=== PATIENT | male | born 1995 | race Hispanic/Latino ===

== ENCOUNTER 2022-05-25 20:36 | Emergency (ER) | payer SELFPAY ==
[2022-05-25] VITALS (8 sets, daily range): BP systolic 125–145; BP diastolic 84–99; PULSE 83–104; RESP 14–20; TEMP 37; O2SAT 97–100
--- NOTE | 2022-05-25 21:13 | ED.GENADULT ---
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 This is a 26-year-old male presents the ED for a med refill. He is out of his potassium supplements. States he has been out of this med for 2 weeks. He recently moved here and does not have a doctor yet. Patient states that he does have some muscle pains. Denies CP, SOB, palpitations. Patient is otherwise asymptomatic at this time. <JAMEL Shi Last Filed: 05/26/22 04:02> Related Data Allergies/adverse reactions: Allergies Allergy/AdvReac Type Severity Reaction Status Date / Time No Known Allergies Allergy Verified 05/25/22 20:51 <JAMEL Shi Last Filed: 05/26/22 04:02> Review of Systems Review of Systems: CONSTITUTIONAL: Denies fever, chills, or sweats. EYES: Denies visual changes, redness, or discharge. ENT: Denies rhinorrhea, congestion, sore throat, or otalgia. CARDIOVASCULAR: Denies chest pain, palpitations, or edema. RESPIRATORY: Denies cough or dyspnea. GASTROINTESTINAL: Denies abdominal pain, nausea, vomiting, or diarrhea. GENITOURINARY: Denies dysuria or hematuria. SKIN: Denies rash or itching. MUSCULOSKELETAL: Endorses myalgias. Denies back pain, joint pain, swelling. NEUROLOGIC: Denies headache, numbness, dizziness, or weakness. PSYCHIATRIC: Denies anxiety or depression. <Rene Infante PA-C - Last Filed: 05/26/22 04:02> Exam Narrative: GENERAL: Well-appearing, well-nourished, and in no acute distress. HEAD: Normocephalic, atraumatic. EYES: PERRLA and EOMI. ENT: Nares clear, no rhinorrhea or epistaxis. Mucous membranes moist. Oropharynx without tonsillar hypertrophy exudate or other lesions. NECK: Supple. No adenopathy or masses. CHEST: No respiratory distress. Clear to auscultation. No wheezes rales or rhonchi HEART: Regular rate and rhythm. No murmur heard. Normal peripheral pulses. ABDOMEN: Soft, nontender, nondistended, normal active bowel sounds. EXTREMITIES: Normal range of motion. No edema. SKIN: Warm, dry, no rash. NEURO: Alert and oriented x3. No focal deficits. PSYCH: Normal mood and affect. <Rene Infante PA-C - Last Filed: 05/26/22 04:02> Course Course Emergency Course: 0400: sleeping comfortably. still not having cp or palpitations <JAMEL Shi Last Filed: 05/26/22 04:02> Vital Signs Vital signs: Vital Signs Temperature 98.6 F 05/25/22 20:39 Pulse Rate 104 H 05/25/22 20:39 Respiratory Rate 16 05/25/22 20:39 Blood Pressure 145/84 H 05/25/22 20:39 Pulse Oximetry 97 05/25/22 20:39 Oxygen Delivery Room Air 05/25/22 20:39 Temperature 98.6 F 05/25/22 20:39 Pulse Rate 85 05/26/22 00:20 Respiratory Rate 17 05/26/22 00:20 Blood Pressure 126/91 H 05/25/22 23:46 Pulse Oximetry 99 05/26/22 00:20 Oxygen Delivery Room Air 05/25/22 20:39 <Rene Infante PA-C - Last Filed: 05/26/22 04:02> Vital Signs Temperature 98.6 F 05/25/22 20:39 Pulse Rate 104 H 05/25/22 20:39 Respiratory Rate 16 05/25/22 20:39 Blood Pressure 145/84 H 05/25/22 20:39 Pulse Oximetry 97 05/25/22 20:39 Oxygen Delivery Room Air 05/25/22 20:39 Temperature 98.6 F 05/25/22 20:39 Pulse Rate 85 05/26/22 00:20 Respiratory Rate 17 05/26/22 00:20 Blood Pressure 126/91 H 05/25/22 23:46 Pulse Oximetry 99 05/26/22 00:20 Oxygen Delivery Room
[2022-05-25 22:17] LABS: Basophils Absolute Auto 0.1 K/mm3 (0.0-0.1); Basophils Percent Auto 0.8 % (0.2-1.2); Eosinophils Absolute Auto 0.9 K/mm3 (0-0.3); Eosinophils Percent Auto 7.9 % (0-4.4); Hematocrit 47.4 % (42.0-52.0); Hemoglobin 16.6 g/dL (14.0-18.0); Immature Granulocyte Absolute 0.04 K/mm3 (0.00-0.031); Immature Granulocyte Percent A 0.3 % (0-0.5); Lymphocytes Absolute Auto 3.78 K/mm3 (0.9-3.2); Lymphocytes Percent Auto 32.1 % (18.3-44.2); Mean Corpuscular Hemoglobin 29.1 pg (26-34); Mean Platelet Volume 9.8 fl (7.4-10.4); Monocytes Percent Auto 8.2 % (2.6-8.5); Neutrophils Percent Auto 50.7 % (45.5-73.1); Platelet Count Result 401 k/mm3 (150-375); Red Blood Count 5.71 M/mm3 (4.6-6.20); White Blood Count 11.8 K/mm3 (4.5-10.0)
--- NOTE | 2022-05-25 22:34 | ECG_ITS ---
Measurements Intervals [place] Rate: 87 P: 52 CO: 172 QRS: 135 QRSD: 113 T: 62 QT: 381 QTc: 460 Interpretive Statements SINUS RHYTHM RIGHT AXIS DEVIATION INTRAVENTRICULAR CONDUCTION DELAY BORDERLINE R WAVE PROGRESSION, ANTERIOR LEADS ST ELEVATION IN DIFFUSE LEADS- PROBABLY EARLY REPOLARIZATION ABNORMALITY BORDERLINE ECG NO PREVIOUS ECG AVAILABLE FOR COMPARISON Electronically Signed On 05-26-2022 8:07:15 CDT by Stewart High D.O.
[2022-05-25 22:35] LABS: Alanine Aminotransferase 51 U/L (6-50); Albumin Level 5.3 g/dL (3.5-5.1); Alkaline Phosphatase 122 U/L (38-126); Anion Gap 12 mmol/L (8-16); Aspartate Amino Transferase 54 U/L (17-59); Bilirubin,Total 0.6 mg/dL (0.2-1.3); Blood Urea Nitrogen 17 mg/dL (9-20); Carbon Dioxide 28 mmol/L (22-30); Chloride 96 mmol/L (98-107); Estimated CRCL calculation 126 ml/min; Estimated Glomerular Filt Rate > 60; Glucose 133 mg/dL (65-110); Sodium 136 mmol/L (137-145)
[2022-05-25 23:15] LABS: Magnesium 1.4 mg/dL (1.6-2.3); Potassium 2.7 mmol/L (3.4-5.0)
[2022-05-25] MEDS: POTASSIUM CHLORIDE 20 MEQ TABLET 40 MEQ PO (23:15)
[2022-05-25] MEDS: POTASSIUM CHLORIDE INJ 40 MEQ in SODIUM CHLORIDE 0.9% IV 500 ML 130 MEQ IVPB (23:39)
[2022-05-25] MEDS: SODIUM CHLORIDE 0.9% IV 1,000 ML 999 ML IV CONT (23:56)
[2022-05-26] VITALS: PULSE 76; RESP 17; O2SAT 99
[2022-05-26] MEDS: MAGNESIUM SULF 1 GM/D5W 100 ML 1 GM/100 ML BAG IVPB (00:17)
[2022-05-26 00:20] VITALS: PULSE 85; RESP 17; O2SAT 99
--- NOTE | 2022-05-26 00:23 | PC.NURSE ---
Report given to JUAN More at this time.
[2022-05-26 03:00] VITALS: BP 114/71; PULSE 75; RESP 16; O2SAT 98
[2022-05-26 05:43] LABS: Anion Gap 9 mmol/L (8-16); Blood Urea Nitrogen 14 mg/dL (9-20); Calcium 9.2 mg/dL (8.4-10.2); Carbon Dioxide 27 mmol/L (22-30); Chloride 102 mmol/L (98-107); Estimated CRCL calculation 112 ml/min; Estimated Glomerular Filt Rate > 60; Glucose 102 mg/dL (65-110); Sodium 138 mmol/L (137-145)
[2022-05-26] MEDS: POTASSIUM CHLORIDE 20 MEQ TABLET 40 MEQ PO (07:09)
[2022-05-26 07:14] VITALS: BP 107/63; PULSE 71; RESP 16; O2SAT 98
== END 2022-05-26 07:16 | disposition home or self-care (01) ==
PROVIDERS: Emergency Provider Physician Assistant
DX: E87.6 Hypokalemia (principal); R25.2 Cramp and spasm
CPT/HCPCS: 36415; 80048; 80053; 83735; 85025; 93005; 96365; 96366; 96368; 99284; A9270; J3475; J3480; J7030; J7040

== ENCOUNTER 2022-12-28 21:53 | Emergency (ER) | payer SELFPAY ==
--- NOTE | ~2022-12-28 | XR_ITS ---
EXAMINATION: XR chest 2V 12/28/2022 22:26 INDICATION: Chest pain and weakness PROCEDURE: 2 view chest COMPARISON: No prior studies for comparison. FINDINGS: The lungs are clear. The cardiomediastinal silhouette is within normal limits. There are no pleural effusions. There is no pneumothorax suspected. IMPRESSION: 1: NO ACUTE CARDIOPULMONARY DISEASE. Reviewed, dictated and finalized at location A.
[2022-12-28 22:00] VITALS: BP 137/95; PULSE 111; RESP 16; TEMP 36.3; O2SAT 94
--- NOTE | 2022-12-28 22:11 | ECG_ITS ---
Measurements Intervals [place] Rate: 108 P: 44 WI: 141 QRS: 134 QRSD: 104 T: 20 QT: 327 QTc: 439 Interpretive Statements SINUS TACHYCARDIA RIGHTWARD AXIS ABNORMAL ECG COMPARED TO ECG 05/25/2022 23:14:31 HEART RATE IS INCREASED Electronically Signed On 12-29-2022 8:26:17 CDT by Chauncey Jo M.D.
[2022-12-28 22:23] LABS: Basophils Absolute Auto 0.1 K/mm3 (0.0-0.1); Basophils Percent Auto 0.7 % (0.2-1.2); Eosinophils Absolute Auto 0.7 K/mm3 (0-0.3); Eosinophils Percent Auto 4.1 % (0-4.4); Immature Granulocyte Absolute 0.07 K/mm3 (0.00-0.031); Immature Granulocyte Percent A 0.4 % (0-0.5); Lymphocytes Percent Auto 24.8 % (18.3-44.2); Mean Corpuscular HGB Conc 34.7 g/dl (32-36); Mean Corpuscular Hemoglobin 29.1 pg (26-34); Mean Corpuscular Volume 83.8 fl (80-100); Mean Platelet Volume 9.6 fl (7.4-10.4); Monocytes Absolute Auto 1.2 K/mm3 (0.1-0.6); Monocytes Percent Auto 7.1 % (2.6-8.5); Neutrophils Absolute Auto 10.2 K/mm3 (1.3-6.7); Neutrophils Percent Auto 62.9 % (45.5-73.1); Platelet Count Result 444 k/mm3 (150-375); Red Blood Count 5.85 M/mm3 (4.6-6.20); Red Cell Distribution Width 12.7 % (11.5-14.5); White Blood Count 16.2 K/mm3 (4.5-10.0)
[2022-12-28 22:34] LABS: Alanine Aminotransferase 60 U/L (6-50); Albumin Level 5.2 g/dL (3.5-5.1); Alkaline Phosphatase 93 U/L (38-126); Anion Gap 14 mmol/L (8-16); Aspartate Amino Transferase 56 U/L (17-59); Bilirubin,Total 0.6 mg/dL (0.2-1.3); Blood Urea Nitrogen 22 mg/dL (9-20); Calcium 9.9 mg/dL (8.4-10.2); Carbon Dioxide 25 mmol/L (22-30); Chloride 92 mmol/L (98-107); Estimated Glomerular Filt Rate > 60; Glucose 121 mg/dL (65-110); INR 0.9; Lipase 87 U/L (23-300); Partial Thromboplastin Time 29.4 SECONDS (22.3-36.8); Potassium 3.5 mmol/L (3.4-5.0); Prothrombin Time 12.5 Seconds (11.1-14.7); Sodium 131 mmol/L (137-145)
[2022-12-28 22:45] LABS: Troponin I < 0.012 ng/mL (0.000-0.034)
[2022-12-28 23:02] LABS: Magnesium 1.4 mg/dL (1.6-2.3)
--- NOTE | 2022-12-28 23:43 | ED.RECABL ---
HPI - Recheck/Abnormal Lab/Rx General Chief Complaint: Recheck/Abnormal Lab/Rx Stated Complaint: med refill Time Seen by Provider: 12/28/22 21:57 Source: patient Mode of arrival: ambulatory Limitations: no limitations and language barrier History of Present Illness HPI narrative: Patient is a 27 y/o male who presents to the ED for medication refill. Patient is primarily Dive[place] speaking. [facility] ob/gyn nurse utilized for assistance in translation. Patient reports he takes potassium and magnesium supplements daily. He has been out of his potassium supplement for the last week and a half. He has not tried contacting his primary care doctor. He comes here today asking for a refill. He would like a 3-month refill. He does not routinely have his labs checked. He does complain of increased myalgias over the last week and intermittent chest pain over the last 2 days. Associated with some shortness of breath, denies pleuritic pain. Denies lower extremity pain or swelling. Denies recent cough or cold symptoms, fevers. Patient sees DUARTE Nieves. Related Data Allergies Allergy/AdvReac Type Severity Reaction Status Date / Time No Known Allergies Allergy Verified 05/25/22 20:51 Review of Systems Review of Systems: CONSTITUTIONAL: Denies fever, chills, or sweats. CARDIOVASCULAR: See HPI. RESPIRATORY: See HPI. GASTROINTESTINAL: Denies abdominal pain, nausea, vomiting, or diarrhea. GENITOURINARY: Denies dysuria or hematuria. SKIN: Denies rash or itching. MUSCULOSKELETAL: Reports myalgia. NEUROLOGIC: Denies headache, numbness, or weakness. All systems reviewed & are unremarkable except as noted in HPI and below Exam Narrative: GENERAL: Well appearing, well-nourished, non-toxic, in no acute distress. HEAD: Normocephalic, atraumatic. NECK: Supple. No adenopathy, no masses. RESPIRATORY: Airway patent, respirations nonlabored. Clear to auscultation bilaterally, no rales, rhonchi, wheezing. CARDIOVASCULAR: Regular rate and rhythm without murmurs, rubs, or gallops. Radial pulses 2+ and equal bilaterally. ABDOMINAL: Soft, nontender, nondistended, no hepatosplenomegaly. Normoactive BS. MUSCULOSKELETAL: Moves all extremities. Strength/ROM intact without gross deformities. No lower extremity edema. No significant calf tenderness. SKIN: Warm, dry, normal color. No rashes. NEURO: A&O X3. Speech clear. Cranial nerves II-XII grossly intact. Steady gait. No ataxic movements. PSYCHIATRIC: Appropriate mood and affect. Normal interaction. Course Vital Signs Vital signs: Vital Signs Temperature 97.3 F L 12/28/22 22:00 Pulse Rate 111 H 12/28/22 22:00 Respiratory Rate 16 12/28/22 22:00 Blood Pressure 137/95 H 12/28/22 22:00 Pulse Oximetry 94 12/28/22 22:00 Oxygen Delivery Room Air 12/28/22 22:00 Temperature 97.3 F L 12/28/22 22:00 Pulse Rate 78 12/29/22 02:31 Respiratory Rate 12 12/29/22 02:31 Blood Pressure 135/80 12/29/22 02:31 Pulse Oximetry 93 12/29/22 02:31 Oxygen Delivery Room Air 12/28/22 22:00 MDM - Recheck/Abnormal Lab/Rx MDM Narrative Medical decision making narrative: Patient presented to ED wanting medication refill of potassium and magnesium supplements. Complaining of myalgias. Also reporting chest pain over last 2 days. Cardiac work-up unremarkable. EKG with sinus tachycardia. No concerning ST changes. Troponin negative X2. D-dimer within normal limits. Chest x-ray interpreted by myself without evidence for cardiopulmonary disease. Basic laboratory studies showing leukocytosis of 16.2. Patient denying recent infectious symptoms to explain this. CMP with sodium slightly low at 131. Potassium 3.5. Given 1KCl tablet. Magnesium low at 1.4. IV replacement ordered. I had a long discussion with patient about the importance of follow-up with his primary care doctor. I discussed that it is inappropriate for the ER to be prescribing 3-month refills. I advised that I will pr
[2022-12-29] VITALS (11 sets, daily range): BP systolic 105–135; BP diastolic 80–86; PULSE 78–93; RESP 10–15; O2SAT 93–100
[2022-12-29 00:25] LABS: D Dimer 0.28 ug/mL (<0.48)
[2022-12-29] MEDS: MAGNESIUM SULF 1 GM/D5W 100 ML 1 GM/100 ML BAG IVPB (00:36)
[2022-12-29 00:40] LABS: Appearance Urine Clear (Clear); Bilirubin Urine Negative (Negative); Blood Urine Negative (Negative); Color Urine Yellow (Yellow); Glucose Urine UA Negative (Negative); Ketones Urine Negative (Negative); Leukocyte Esterase Ur Negative LEU/UL (Negative); Nitrate Urine Negative (Negative); Protein Urine Negative (Negative); Specific Grav Ur 1.011 (1.001-1.035); Urobilinogen Urine 0.2 mg/dL (<2.0)
[2022-12-29 01:15] LABS: Add Urine Microscopic? NO
[2022-12-29] MEDS: POTASSIUM CHLORIDE 20 MEQ ER TABLET 40 MEQ PO (01:40)
[2022-12-29 02:19] LABS: Troponin I < 0.012 ng/mL (0.000-0.034)
== END 2022-12-29 02:55 | disposition home or self-care (01) ==
PROVIDERS: Emergency Medicine; Emergency Provider Physician Assistant
DX: E83.42 Hypomagnesemia (principal); M79.10 Myalgia, unspecified site; R07.89 Other chest pain; Z76.0 Encounter for issue of repeat prescription; R00.0 Tachycardia, unspecified
CPT/HCPCS: 36415; 71046; 80053; 81003; 83690; 83735; 84484; 85025; 85380; 85610; 85730; 93005; 96365; 99284; A9270; J3475